=== PATIENT | male | born 1975 | race Caucasian/White ===

== ENCOUNTER 2023-04-17 10:43 | Emergency (ER) | payer BC, SELFPAY ==
[2023-04-17 10:43] VITALS: BP 165/101; PULSE 106; RESP 16; TEMP 36.6; O2SAT 98
--- NOTE | 2023-04-17 10:55 | RAD_ITS ---
INDICATION: pain EXAMINATION/TECHNIQUE: X-RAY - RIGHT XR Ankle Min 3 Views 3 VIEWS COMPARISON: No relevant prior comparison study available FINDINGS: SOFT TISSUES: There is soft tissue swelling overlying the lateral malleolus.. No radiopaque foreign body. BONES/JOINTS: There is a comminuted intra-articular fracture of the distal fibula. No sclerotic or destructive changes observed. RAD/Ankle min 3 Views IMPRESSION: Distal fibular fracture. Electronically Signed: Denisha Patino MD at 12:09 EDT ,
--- NOTE | 2023-04-17 10:58 | EDS_ITS ---
HPI History of Present Illness Chief Complaint: Lower Extremity Injury Narrative Narrative: 47-year-old male presenting with right ankle pain. Patient states that last night he was not paying attention in his boxer started to run and pulled his leash pulling the patient over. He states he rolled his right ankle. He has been able to hobble on it he states but he is not able to bear full weight. Denies any other injury. He notes there is bruising and swelling over the right ankle. PFSH PFSH Home Medications methylprednisolone 4 mg tablets in a dose pack (Medrol (Ryan)) 4 mg PO DAILY #21 tabs 04/17/23 [Rx Last Taken Unknown] oxycodone-acetaminophen 5 mg-325 mg tablet (Endocet) 1 tab PO Q6H PRN pain 3 days #12 tabs 04/17/23 [Rx Last Taken Unknown] Allergy/AdvReac Type Severity Reaction Status Date / Time No Known Allergies Allergy Verified 04/17/23 10:45 Social History Smoking Status: Never smoker ROS ROS ED Constitutional Constitutional ED: Denies chills, fever(s) or sweats Eyes Eyes: Denies blurry vision or change in vision ENT ENT ED: Denies ear pain or sore throat Cardiovascular Cardiovascular: Denies chest pain, palpitations or racing heartbeat Respiratory/Chest Respiratory/Chest: Denies cough, dyspnea or sputum Gastrointestinal Gastrointestinal: Denies abdominal pain, constipation, diarrhea, nausea or vomiting Genitourinary Genitourinary ED: Denies dysuria, hematuria or urinary frequency Musculoskeletal Musculoskeletal: Reports other Details: Right ankle pain ; Denies arthralgias, myalgias or neck pain Integumentary Reports other Details: Bruising over right lateral malleolus ; Denies abscess, Abrasions or rash Neurologic Neurologic: Denies headache(s), paresthesias or weakness Psychiatric Psychiatric: Denies anxiety, depression, suicidal ideation or suicidal thoughts Endocrine Endocrinology: Denies polydipsia or polyuria EXAM Physical Exam Const Vital Signs: 04/17/23 10:43 Temperature 97.9 F Temperature Source Temporal Pulse Rate 106 H Respiratory Rate 16 Blood Pressure 165/101 H Blood Pressure Mean 122 Pulse Ox 98 Oxygen Delivery Method Room Air Positive well nourished General Appearance ED: NAD HEENT Reports moist mucous membranes Resp normal respiratory effort Cardio regular rate and regular rhythm Extremity Extremity Narrative: Bruising, swelling of the right lateral malleolus ascending into the foot. There is tenderness over the right lateral malleolus. The medial malleolus is nontender. There is no tenderness to palpation of the foot. Pedal pulses 2+. Neurovascular intact 5 toes. No pain at the proximal fibula Neuro oriented x3 and CN's II-XII intact bilaterally Sensorium / Orientation: alert Motor Exam: strength 5/5 throughout Psych mental status grossly normal MDM MDM MDM Narrative Medical decision making narrative: Patient presenting with right ankle pain. Differential includes right ankle s prain, right ankle fracture. Patient given Naprosyn 500 mg p.o. We will get an x-ray of the right ankle. X-ray of the right ankle shows a distal fibular fracture. Discussed the case with Dr. Hickey who recommended a posterior splint. He came to the ER to evaluate the patient and did apply the splint himself. He requested a CT of the ankle be ordered so he can plan surgically because the patient will need surgery for this. Patient given Percocet, Medrol Dosepak for home. He will be given crutches. He is nonweightbearing. He acknowledged understanding. Impression: 1. Right distal malleolus fracture 2. Fall Radiography Diagnostic Testing: Clinical Impression(s) from Imaging Studies Ankle X-Ray 04/17/23 10:55 IMPRESSION: Distal fibular fracture. Electronically Signed: Denisha Patino MD at 12:09 EDT , Discharge Plan Triage Chief Complaint: Lower Extremity Injury ED Provider: Mansoor Crawford Dx/Rx/DC Orders Instructions: ED Ankle Fracture, Distal Fibula Prescriptions: New oxycodone-acetaminophen [Endocet] 5-325 mg tablet 1 tab PO Q6H PRN (Reason: pain) 3 Days Qty: 12 0RF methylprednisolone [Medrol (Ryan)] 4 mg tablets,dose pack 4 mg PO DAILY Qty: 21 0RF Rx Instructions: Use as directed Primary Care Provider: Matt Walters Referrals: Raymond Hickey DPM [Med Staff - Active Staff] - 3-5 Days Matt Walters, PA [Primary Care Provider] - Disposition Disposition: Home, Self Care
[2023-04-17] MEDS: Naproxen 500 MG Tablet PO (11:02)
[2023-04-17 11:04] VITALS: BMI 53.7
[2023-04-17 11:10] VITALS: BMI 24.3
--- NOTE | 2023-04-17 12:54 | CON.PCM_ITS ---
Assessment & Plan Assessment/Plan (1) Ankle fracture: PLAN: Patient was examined and evaluated. All findings were discussed with the patient. All questions were answered to the patient satisfaction. Radiographs reviewed that show evidence of a oblique fracture to the distal fibula, Mcgee B. CT scan: Pending Educated the patient the need for open reduction internal fixation to the right ankle secondary to some displacement of the distal fragment of the fibula. Risk and benefits were discussed with the patient, he is understanding and will follow-up in the office for surgical evaluation/planning. Posterior splint was donned. Patient is to be nonweightbearing to the right lower extremity with crutches. Patient will be prescribed a Medrol Dosepak as well as Percocet 5/325 for pain control. Patient was instructed to rest ice and elevate his right lower extremity until follow-up in the office. Please reach out to Dr. Raymond Hickey with any questions or concerns. Thank you for the consult! (2) Pain in right ankle: HPI Consult Data Date of Consult: 04/17/23 HPI Narrative Reason for Consultation: Right lower extremity ankle fracture HPI Narrative: JEANETH CRENSHAW, is a 47 M who presents to [place] emergency department for concerns of right ankle pain and swelling. Patient admits to trauma was when he was walking his dog and not paying attention, the dog decided to run pulling the leash causing the patient to roll and fall on his right ankle. After the fall the patient could only walk a few steps without having severe pain. Patient sta vicky that the increased pain and swelling brought him to the emergency department for evaluation. Patient admits to smoking 1 pack of cigarettes per week. He denies any additional trauma except stated above. He denies constitutional symptoms. No other pedal complaints at this time. [facility] Home Medications methylprednisolone 4 mg tablets in a dose pack (Medrol (Ryan)) 4 mg PO DAILY #21 tabs 04/17/23 [Rx Last Taken Unknown] oxycodone-acetaminophen 5 mg-325 mg tablet (Endocet) 1 tab PO Q6H PRN pain 3 days #12 tabs 04/17/23 [Rx Last Taken Unknown] Allergy/AdvReac Type Severity Reaction Status Date / Time No Known Allergies Allergy Verified 04/17/23 10:45 Social History Smoking Status: Never smoker Physical Exam Narrative Vascular: DP and PT pulses palpable. CFT brisk. Nonpitting edema appreciated to the dorsum right foot as well as lateral ankle. No ecchymosis erythema noted. Neurological: Light touch and epicritic station is intact. Patient responds to painful stimuli. Dermatological: No open lesions or abrasions are noted. Nonpitting edema appreciated to the dorsum right foot as well as to the lateral ankle of the right lower extremity. No erythema or proximal streaking is noted. No ecchymosis. No ecchymosis to the plantar vault of the right lower extremity. Musculoskeletal: Muscle strength deferred secondary to pain. Severe palpatory tenderness appreciated to the distal fibula. Moderate posterior tenderness appreciated to the ATFL and CFL. No pain to the medial malleolus. No pain to the proximal fibula with palpation. Pain to the lateral gutter. No pain to the medial gutter. Negative attempt for anterior drawer secondary to pain. No pain to Lisfranc's ligament. No pain with range of motion to the midtarsal joint. Active and passive range of motion to digits is present without pain. No pain with calf compression. Const alert, oriented x3 and no apparent distress Radiology Impression Ankle X-Ray 04/17/23 10:55 IMPRESSION: Distal fibular fracture. Electronically Signed: Denisha Patino MD at 12:09 EDT ,
--- NOTE | 2023-04-17 13:37 | CT_ITS ---
STUDY: CT RIGHT ANKLE WITHOUT CONTRAST REASON FOR EXAM: Male, 47 years old. fracture RADIATION DOSAGE (If Supplied By Facility): CTDIvol = ( 15.35 ) mGy, DLP = ( 526.46 ) mGycm TECHNIQUE: Thin section transaxial imaging of the ankle was obtained, with sagittal and coronal reconstructed images. Individualized dose optimization techniques were used for this CT. COMPARISON: X-ray earlier today FINDINGS: Slightly posteriorly displaced oblique fracture of the distal right fibula at the level of tibial plafond. Normal tibiotalar articulation and talar dome. Normal talus, calcaneus, navicular and cuboid tarsal bones. Normal subtalar, talonavicular and calcaneocuboid articulations. Normal navicular-cuneiform, cuneiform tarsal bones and intercuneiform articulations. Normal tarsometatarsal articulations and visualized metatarsi. Lateral soft tissue swelling. CT/Extremity Lower without Contra IMPRESSION: Acute slightly posteriorly displaced oblique fracture of the distal right fibula at the level of tibial plafond with surrounding soft tissue swelling. Electronically Signed: Luis Alfredo Ferrera MD at 15:35 EDT ,
[2023-04-17 14:21] VITALS: BP 126/78; PULSE 64; RESP 14; TEMP 36.4; O2SAT 99
== END 2023-04-17 14:22 | disposition home or self-care (01) ==
PROVIDERS: Emergency Provider Student in an Organized Health Care Education/Training Program; PCP Physician Assistant; Visit Provider Student in an Organized Health Care Education/Training Program
DX: S82.891A Other fracture of right lower leg, initial encounter for closed fracture (principal); F17.210 Nicotine dependence, cigarettes, uncomplicated; W19.XXXA Unspecified fall, initial encounter
CPT/HCPCS: 73610; 73700; 99284

== ENCOUNTER 2023-05-12 10:46 | Day surgery (SDC) | payer BC, SELFPAY ==
--- NOTE | 2023-05-05 12:12 | EKG12_ITS ---
Test Reason : PRE OP Blood Pressure : / mmHG Vent. Rate : 077 BPM Atrial Rate : 077 BPM P-R Int : 124 ms QRS Dur : 126 ms QT Int : 406 ms P-R-T Axes : 073 086 040 degrees QTc Int : 459 ms Normal sinus rhythm Right bundle branch block Abnormal ECG Confirmed by HIPOLITO RIVERA, GERI ([id number]), editor publications KEISHA VILLAFANA ([id number]) on 05/08/2023 1:54:08 PM Referred By: Raymond Hickey Confirmed By:GERI MCMILLAN MD
[2023-05-12] VITALS (8 sets, daily range): BP systolic 156–180; BP diastolic 94–131; PULSE 60–97; RESP 16; TEMP 36.6–37.3; O2SAT 97–100; BMI 23.6
[2023-05-12] MEDS: Magnesium 1 GM over 15 mins IV (11:23)
[2023-05-12] MEDS: Lactated Ringers 1,000 ML 15 ML IV (11:23)
[2023-05-12] MEDS: Gabapentin 600 MG Tablet PO (11:24)
[2023-05-12] MEDS: Acetaminophen 500 MG Tablet 1000 MG PO (11:24)
[2023-05-12] MEDS: Insulin Lispro 100 UNIT/ML INSULN.PEN SC (11:24)
--- NOTE | 2023-05-12 12:39 | OP.PCM_ITS ---
Problems Associated Problem List Diagnoses (1) Ankle fracture: (2) Pain in right ankle: Report of Operation Date of Procedure: 05/12/23 Pre-Operative Diagnosis: 1. Distal fibular fracture, right lower extremity 2. Syndesmotic instability, right lower extremity 3. Pain, right ankle Post-Operative Diagnosis: 1. Distal fibular fracture, right lower extremity 2. Syndesmotic instability, right lower extremity 3. Pain, right ankle Surgery/Procedure Performed:: 1. Open reduction internal fixation of distal fibular fracture, right lower extremity 2. Stress views, right lower extremity 3. Syndesmotic repair, right lower extremity Description of Surgical Findings:: 1. Stabilization of distal fibular fracture with intramedullary fibular nail by Arthrex 2. Instability noted with stress views of the syndesmosis of the right lower extremity 3. Upon cleaning the stress views there shows no instability to the ATFL, CFL or deltoid ligaments of the right lower extremity Surgeon: Raymond Hickey informatics physician: Greg Bacon Type of Anesthesia: General/Regional Anesthesiologist: Corona Monet Special Medications: None Specimen's removed: None Drains: None Estimated Blood Loss (mL): 10 mL Fluids Replaced: Per anesthesia Description of Procedure: Indications For Operation: Mr. Smith is a 47-year-old male who was admitted to [facility] for right lower extremity ankle fracture. Patient was initially seen at [facility] emergency department where he was diagnosed with a distal fibular fracture on 04/17/23 after tripping over his dog leash while walking his dog. Since then the patient has been nonweightbearing with a cam boot and assistance of crutches while approval for the operation has undertaken. Due to the nature of the patient's right lower extremity ankle fracture it had deemed necessary at this time to take the patient to the operating room and perform open reduction internal fixation, stress views and syndesmotic repair of the right lower extremity to help relieve his constant pain. The nature of the problem, anticipated procedures, postop recovery/convalences and risk/complications include but not limited to infection, wound healing complications, hypertrophic scarring, numbness, tingling, chronic pain, CRPS, over and under correction, recurrence of deformity, DVT and or PE and the need for further surgery have been discussed in great detail with the patient. All questions have been answered to the patient's satisfaction. There are no guarantees given as to the outcome of the procedure. Description of Procedure: Under mild sedation, the patient was brought into the operating room and placed on the operating table in supine position. Once the patient was under general anesthesia endotracheal tube, the right lower extremity was blocked using approximately 10 cc 0.5% Marcaine plain to the saphenous nerve. A popliteal block will be placed by anesthesia following the case in PACU. Next, a well- padded thigh tourniquet was applied to the right lower extremity. Next, a timeout was then undertaken verifying the correct patient, extremity, visibility of preoperative markings, availability of the equipment. Next, attention was directed to the right lower extremity using a 6 inch Esmarch the right lower extremity was exsanguinated and held to 60 degrees for approximately 1 minute before inflating the thigh tourniquet to 275 mmHg. Using fluoroscopy the ankle joint, fibula as well as the syndesmosis was marked out prior to incision. Point point reduction clamps were used to percutaneously reduce the distal fibular fracture. Next, a small stab incision was placed at the inferior aspect of the fibula, the 1.6 mm guidewire with tissue protector was advanced up the fibula approximately 15 to 20 mm. Next, using fluoroscopy the guidewire was checked in AP and lateral views to make sure that it was in the medullary canal of the fibula. Next, using the 6.2 mm tapered reamer with tissue protector, the flutes were buried approximately 3 mm into the fibula. Next, the 3.2 mm reamer was used over the guidewire through the tissue protector until the depth indicator collar was well within the bone and chatter was noted. This was confirmed via fluoroscopy in 2 planes. The fibula IM nail was assembled on the back table. Next, the fibula nail measuring 3.0 x 130mm was inserted to the reamed out canal and the fibulock nail was malleted into place per the Arthrex recommendations with the rep in the room. A temporary 1.6 mm K wire was placed for temporary fixation. Next, the fibular nail talons were deployed for proximal stability. Next, 3 cortical screws were placed in the distal holes of the fibular nail. Next, using fluoroscopy, stress views of the syndesmosis was observed in the dorsiflexion external rotation method of the right lower extremity and showed instability with large gapping between the fibula and tibia. Next, 1 Arthrex tight ropes were placed in the proximal hole of the fibula nail per the sampling expert's recommendation. After placement of the tight rope there showed excellent tib-fib overlap which was checked with fluoroscopy. The right lower extremity was wiped clean and patted dry. All incision was flushed with copious clarke more saline. A application of 2 x 2 biovance was placed and all percutaneous incisions to aid in healing and decrease inflammation. All percutaneous incisions were closed with 3-0 nylon in simple interrupted suture technique. The right thigh tourniquet was deflated at 60 minutes and showed excellent reperfusion to the right lower extremity. Again, the right lower extremities were cleaned and patted dry. Jumpstart was applied to all incisions. This jumpstart was covered with moist 4 x 4's followed by dry sterile dressing, cast padding to 4 inch Richie bandage and application of a AO splint was done to the right lower extremity. The patient tolerated the procedure and anesthesia well in apparent satisfactory condition and was transported to the PACU for further monitoring prior to discharge back to the floor. Vital signs stable and vascular status intact to all digits bilateral. Need for skilled assistant case manager: Greg Bacon DPM was critical to the outcome of the case. During the course of the procedure the assistant case manager physician played a vital role. His intimate knowledge of my steps in the procedure aided in safe and expedient completion of the procedure. The assistant case manager surgeon played a vital role in positioning particularly in obtaining the appropriate positioning. The assistant case manager surgeon was also vital in the retraction of soft tissues during the exposure and protecting vital structures when needed. The surgeon was also vital and obtaining fracture reduction and assisting with hardware placement throughout the case. Post Operative Plan: Weightbearing: Patient to be nonweightbearing to the right lower extremity with assistance of crutches until follow-up in office in 1 week. Antibiotics: 2 g Ancef through the IV DVT Prophylaxis: 81 mg aspirin twice daily for 30 days [place]: None Dressing: Jumpstart, moist 4 x 4's, dry sterile dressing, application of AO splint right lower extremity X-Rays: Post-operative films taken on the operating room. Pain Medication: Percocet 12/14/2024 dispense 28 tabs every 6 hours as needed for pain. Follow-up: Patient to follow-up [address] Hickey in office. Grafts/Implants Used: 2 x 2 biovance Complications None Admit VTE Documentation VTE Present on Admission: No VTE Mechan Device Prophylaxis: SCD's VTE Pharm Prophylaxis ordered?: Yes
[2023-05-12] MEDS: Cefazolin 2 GM in 0.9% Normal Saline (100mL Bag) 100 ML IV (12:54)
--- NOTE | 2023-05-12 12:55 | RAD_ITS ---
INDICATION: FX EXAMINATION/TECHNIQUE: X-RAY - RIGHT XR Ankle 5 VIEWS COMPARISON: April 17, 2023 FINDINGS: Intraoperative images showing ORIF for a distal fibular fracture . Bony details are limited. RAD/Ankle min 3 Views IMPRESSION: ORIF for a distal fibular fracture. Electronically Signed: Moo Islas DO at 19:34 EDT ,
[2023-05-12] MEDS: Bupivacaine 0.5% PF 10 ML VIAL (13:00)
[2023-05-12 13:03] LABS: Bedside Glucose 276 mg/dL (74-106)
[2023-05-12 15:20] LABS: Bedside Glucose 102 mg/dL (74-106)
== END 2023-05-12 16:29 | disposition home or self-care (01) ==
LOC: SDC 10:47 → AC 10:48
PROVIDERS: Anesthesiology; PCP Physician Assistant; Referring Provider Podiatrist Foot & Ankle Surgery; Visit Provider Podiatrist Foot & Ankle Surgery
PROC: (CPT 27814; principal; 2023-05-12 12:30)
DX: S82.831A Other fracture of upper and lower end of right fibula, initial encounter for closed fracture (principal); M25.371 Other instability, right ankle; M25.571 Pain in right ankle and joints of right foot; F17.210 Nicotine dependence, cigarettes, uncomplicated; F12.90 Cannabis use, unspecified, uncomplicated; W19.XXXA Unspecified fall, initial encounter
CPT/HCPCS: 27792; 27829; 64445; 01480; 36415; 73610; 76000; 82962; 83735; 87081; 93005; C1713; J7120; J2405; J3475